=== PATIENT | male | born 1950 | race Two or more races ===

== ENCOUNTER 2018-12-02 19:14 | Inpatient (IN) | payer MEDICARE, OTHER ==
[~2018-12-02] VITALS: Ht 165.1 cm; Wt 67.6 kg
--- NOTE | 2018-12-02 19:45 | NUR ---
IAM FROM HOME. TO ER BED 9. AAOX4. NO RESP DISTRESS NOTED, BREATHING EVEN AND UNLABORED. AMBULATORY. PT REPORT NOT FEELING WELL AND WEAK BECAUSE HE IS GOING THRUOGH ALCHOHOL WITHDRAWAL. LAST DRINK WAS THIS MORNING, 2 BEERS. PT REPORTS THAT HE USUALLY DRINKS THROUGHTOUT THE DAY. PT REPORTS NAUSEA AND GEN BODY PAIN. MD AT BEDSIDE FOR EVAL. ORDERS RECEIVED, NOTED AND CARRIED OUT. IV LINE OBTAINED ON R HAND 20G. BLOOD DRAWN AND GIVEN TO WELLNESS CONSULTANT AT BEDSIDE.
[2018-12-02 19:50] LABS: BASOPHILS % (AUTO) 0.3 % (0.0-2.0); EOSINOPHILS % (AUTO) 0.1 % (0.0-6.0); HEMATOCRIT 36 % (39-51); HEMOGLOBIN 12.5 g/dL (13.5-17.5); LYMPHOCYTES % (AUTO) 19.4 % (20.0-44.0); MEAN CORPUSCULAR HGB CONC 35 g/dl (31.0-36.0); MEAN CORPUSCULAR VOLUME 95 fL (80-96); MONOCYTES # (AUTO) 0.4 /CMM (0.1-1.30); MONOCYTES % (AUTO) 7.2 % (2.0-12.0); NEUTROPHILS # (AUTO) 3.7 /CMM (1.8-8.9); PLATELET COUNT (AUTO) 119 /CMM (150-450); RED BLOOD CELL COUNT(AUTO) 3.74 MIL/uL (4.5-6.0); WHITE BLOOD COUNT (AUTO) 5.1 K/uL (4.3-11.0)
[2018-12-02] MEDS ORDERED: LORAZEPAM INJ 2 MG/ML VIAL ONE (19:52)
[2018-12-02] MEDS ORDERED: LORAZEPAM INJ 2 MG/ML VIAL IV ONE (20:00)
[2018-12-02] MEDS ORDERED: IV NS 0.9% 1,000 ML BAG IV ONE ×2 (20:00→20:30)
[2018-12-02 20:29] LABS: ALANINE AMINOTRANSFERASE 26 U/L (12-78); ALBUMIN 3.1 g/dL (3.4-5.0); ALKALINE PHOSPHATASE 91 U/L (46-116); ASPARTATE AMINOTRANSFERASE 39 U/L (15-37); BILIRUBIN,DIRECT 0.2 mg/dL (0.0-0.2); BILIRUBIN,TOTAL 0.5 mg/dL (0.2-1.0); CALCIUM, SERUM 7.8 mg/dL (8.5-10.1); CARBON DIOXIDE 25 mmol/L (21-32); CHLORIDE 97 mmol/L (98-107); GLUCOSE 112 mg/dL (74-106); SODIUM SERUM 136 mmol/L (136-145); TOTAL PROTEIN, SERUM 7.3 g/dL (6.4-8.2); UREA NITROGEN, BLOOD 6 mg/dL (7-18)
[2018-12-02 20:30] LABS: POTASSIUM 2.4 mmol/L (3.5-5.1)
[2018-12-02] MEDS ORDERED: ONDANSETRON HCL/PF 4 MG/2 ML VIAL ONE (21:20)
--- NOTE | 2018-12-02 21:28 | NUR ---
PT COMPLAINED OF NAUSEA. MD MADE AWARE. RECEIVED VERBAL ORDER TO GIVE ZOFRAN 4MG IV
[2018-12-02] MEDS ORDERED: POTASSIUM CHLORIDE 20 MEQ TAB.PRT.SR PO ONE ×2 (21:30→21:32)
[2018-12-02] MEDS ORDERED: ONDANSETRON HCL/PF - ER 4 MG/2 ML VIAL IV ONE (21:30)
[2018-12-02 21:31] LABS: APPEARANCE,URINE Clear (CLEAR); BILIRUBIN,URINE SMALL (NEGATIVE); BLOOD, URINE Negative Ery/uL (NEGATIVE); COLOR,URINE Yellow (YELLOW); KETONES,URINE Negative (NEGATIVE); LEUKOCYTE ESTERASE ,URINE Moderate (NEGATIVE); NITRITE, URINE Positive (NEGATIVE); PROTEIN,URINE Negative (NEGATIVE); UGLUCOSE Negative (NEGATIVE); UROBILINOGEN,URINE 0.2 EU/dL (0.2)
[2018-12-02 21:38] LABS: BACTERIA,URINE 2+ /HPF (None Seen); RBC,URINE NONE SEEN /HPF (0-2); SQUAMOUS EPITHELIAL CELL,UR Few /HPF (None Seen)
[2018-12-02] MEDS ORDERED: Magnesium 1GM/D5W 100ML PREMIX 400 ML IV ONE (22:40)
[2018-12-02] MEDS: Magnesium 1GM/D5W 100ML PREMIX 100 ML IV SCH ×2 (22:46→23:46)
[2018-12-02] MEDS ORDERED: CEFTRIAXONE 1GM BAG (ER ONLY) 50 ML IV ONE ×2 (22:55→23:00)
[2018-12-02] MEDS ORDERED: ACETAMINOPHEN 325 MG TABLET PO PRN (23:30)
[2018-12-02] MEDS ORDERED: ONDANSETRON HCL/PF 4 MG/2 ML VIAL IVP PRN (23:30)
[2018-12-02] MEDS ORDERED: LORAZEPAM INJ 2 MG/ML VIAL IV PRN (23:30)
--- NOTE | 2018-12-02 23:40 | NUR ---
REPORT GIVEN TO CHELSIE HOGUE FOR NESHA. PT GOING TO 320-1
--- NOTE | 2018-12-03 00:28 | NUR ---
RN NOTES Faxed order for Thiamine to nursing fast food shift supervisor as medication is not available in the unit. Faxed went through. Called nursing fast food shift supervisor in office and cellphone to inform her, but no answer. Will follow up
[2018-12-03 00:30] VITALS: BP 141/92
--- NOTE | 2018-12-03 00:30 | NUR ---
CORE JAVA SOFTWARE ENGINEERABSTRACTOR NOTES Patient came to unit via radha for early sepsis. Patient is alert, oriented x 3. Breathing even and unlabored. Not in any distress. Stable on room air. Third bag of Magnesium 1gm IV currently infusing at 100mL/hr on R) hand g#20. Another IV site on L) wrist g#20 intact and patent. Tele monitor in place- sinus rhythm 81. Patient refused skin assessment, said he has no skin issues. Patient also refused to be changed into a hospital gown. Oriented to call light- placed within reach, bed in lowest locked position. Will continue to monitor accordingly Addendum: 12/03/18 at 0650 by SAMIRA NEWTON RN Patient's time of arrival to unit is 00:20hrs
[2018-12-03] MEDS ORDERED: GABA600T12 PO (00:35)
[2018-12-03] MEDS ORDERED: TRAM50TA2 PO (00:35)
--- NOTE | 2018-12-03 00:37 | NUR ---
PT TRANSPORTED TO UNIT ON GURNEY WITH EMT AND RN AT BEDSIDE W/ ACLS PROTOCOL. NAD NOTED DURING TRANSPORT.
[2018-12-03] MEDS: IV NS 0.9% 1,000 ML IV SCH ×2 (00:44→13:24)
[2018-12-03] MEDS: Magnesium 1GM/D5W 100ML PREMIX 100 ML IV SCH ×2 (00:44→01:32)
[2018-12-03] MEDS: LEVOFLOXACIN 750 MG /D5W 150ML 150 ML IV SCH ×2 (00:45→23:09)
[2018-12-03] MEDS ORDERED: Thiamine 100 MG in IV D5W 50 ML IV SCH (01:00)
--- NOTE | 2018-12-03 01:15 | NUR ---
RN NOTES Called nursing production shift supervisor again in office and cellphone regarding Thiamine 100mg IV, still no answer. Will continue to follow up
--- NOTE | 2018-12-03 01:18 | NUR ---
RN NOTES Patient c/o pain. Patient is taking Gabapentin 600mg PO TID and Tramadol 50mg PO. Rossi LEAF SIZE PICKER informed. As per Rossi, to give Gabapentin. No Tramadol for now.
[2018-12-03] MEDS: GABAPENTIN 300 MG CAPSULE PO SCH ×4 (01:27→17:00)
[2018-12-03] MEDS ORDERED: Thiamine 100 MG/ML VIAL ONE (02:01)
[2018-12-03 04:00] VITALS: BP 149/97
--- NOTE | 2018-12-03 06:38 | NUR ---
MS RN CLOSING NOTES Patient still sleeping in bed, easy to arouse. Breathing even and unlabored. Not in any distress, on room air. Peripheral IV on L wrist g#20 infusing at 75mL/hr. IV on R) hand g#20 intact and patent, S/L. Tele monitor in place- sinus rhythm 77. No acute changes overnight. All needs attended. Safety measures maintained. Will endorse NESHA to oncoming RN
[2018-12-03 07:44] LABS: BASOPHILS % (AUTO) 0.1 % (0.0-2.0); EOSINOPHILS % (AUTO) 0.4 % (0.0-6.0); HEMATOCRIT 33 % (39-51); HEMOGLOBIN 11.4 g/dL (13.5-17.5); LYMPHOCYTES # (AUTO) 0.8 /CMM (0.8-4.8); LYMPHOCYTES % (AUTO) 18.3 % (20.0-44.0); MEAN CORPUSCULAR HGB CONC 35 g/dl (31.0-36.0); MEAN CORPUSCULAR VOLUME 96 fL (80-96); MONOCYTES # (AUTO) 0.3 /CMM (0.1-1.30); MONOCYTES % (AUTO) 7.2 % (2.0-12.0); PLATELET COUNT (AUTO) 72 /CMM (150-450); RED BLOOD CELL COUNT(AUTO) 3.39 MIL/uL (4.5-6.0); WHITE BLOOD COUNT (AUTO) 4.1 K/uL (4.3-11.0)
[2018-12-03 07:59] LABS: CALCIUM, SERUM 7.4 mg/dL (8.5-10.1); CREATININE 0.8 mg/dL (0.6-1.3)
[2018-12-03 08:00] VITALS: BP 135/96
[2018-12-03 08:00] LABS: ALBUMIN 2.9 g/dL (3.4-5.0); BILIRUBIN,TOTAL 0.8 mg/dL (0.2-1.0); MAGNESIUM 2.1 mg/dL (1.8-2.4); PHOSPHORUS 2.5 mg/dL (2.5-4.9); TOTAL PROTEIN, SERUM 6.9 g/dL (6.4-8.2)
[2018-12-03 08:13] LABS: POTASSIUM 2.4 mmol/L (3.5-5.1)
[2018-12-03 08:14] LABS: THYROID STIMULATING HORMONE 2.953 uIU/mL (0.358-3.74)
[2018-12-03] MEDS: PANTOPRAZOLE 40 MG TABLET.DR PO SCH (09:00)
[2018-12-03] MEDS: NICOTINE PATCH (7MG) 7 MG PATCH.TD24 TD SCH (09:00)
[2018-12-03] MEDS ORDERED: PANTOPRAZOLE 40 MG VIAL IV SCH (09:00)
[2018-12-03] MEDS: VIT B CMPLX 3/FA/VIT C/BIOTIN 1 TAB TABLET PO SCH (09:18)
[2018-12-03 09:41] LABS: LYMPHOCYTES % (MANUAL) 25 % (16-48); MONOCYTES % (MANUAL) 8 % (0-11.0); NEUTROPHILS % (MANUAL) 67 (42-76)
[2018-12-03] MEDS: POTASSIUM CHLORIDE 20 MEQ TAB.PRT.SR PO SCH ×2 (11:11→13:19)
[2018-12-03] MEDS: POTASSIUM CL. PREMIX PERIPHER. 50 ML IV SCH ×2 (11:11→11:30)
[2018-12-03] MEDS: TRAMADOL HCL 50 MG TABLET PO PRN ×2 (13:19→20:45)
[2018-12-03 16:00] VITALS: BP 122/94
--- NOTE | 2018-12-03 19:05 | NUR ---
MS RN NOTES RECEIVED PT IN BED AWAKE AND ABLE TO MAKE NEEDS KNOWN. PT A/O X3. RESPIRATIONS EVEN AND UNLABORED WITH NO S/S OF ACUTE DISTRESS OR SOB NOTED. NO COMPLAINTS OF PAIN AT THIS TIME. PT WITH LWRIST #20G PATENT AND INTACT INFUSING NS@75ML/HR, TOLERATING WELL. PT ALSO WITH RHAND #20G PATENT AND INTACT AND SL. PT ON TELE MONITOR @SR 68. SAFETY MEASURES IN PLACE WITH BED IN LOWEST LOCKED POSITION WITH SIDE RAILS UP X2. CALL LIGHT WITHIN REACH. WILL CONTINUE TO MONITOR.
[2018-12-03 20:00] VITALS: BP 134/78
--- NOTE | 2018-12-03 21:45 | NUR ---
Met with patient,he is alert and pleasant. States he lives in an independent shelter facility at [address] [place] [address]. Patient states he is ambulatory and independent with adl's. He uses his wheelchair as a walker for mobility outside the facility. Was on homehealth but he cannot remember the homehealth contact info. States Marquis Mccann [phone] is the facility caregiver and will arrange transportation when discharge. Addendum: 12/03/18 at 2147 by JESSICA STEVE RN Amended: Links added.
[2018-12-04] VITALS: BP 144/80
[2018-12-04] MEDS: IV NS 0.9% 1,000 ML IV SCH ×2 (01:31→15:09)
[2018-12-04 04:00] VITALS: BP 127/94
[2018-12-04 06:49] LABS: BASOPHILS % (AUTO) 0.2 % (0.0-2.0); EOSINOPHILS % (AUTO) 1.2 % (0.0-6.0); HEMATOCRIT 31 % (39-51); HEMOGLOBIN 10.6 g/dL (13.5-17.5); LYMPHOCYTES # (AUTO) 0.7 /CMM (0.8-4.8); LYMPHOCYTES % (AUTO) 18.1 % (20.0-44.0); MEAN CORPUSCULAR HGB CONC 34 g/dl (31.0-36.0); MEAN CORPUSCULAR VOLUME 98 fL (80-96); MONOCYTES # (AUTO) 0.4 /CMM (0.1-1.30); MONOCYTES % (AUTO) 8.6 % (2.0-12.0); NEUTROPHILS % (AUTO) 71.9 % (43.0-81.0); PLATELET COUNT (AUTO) 59 /CMM (150-450); RED BLOOD CELL COUNT(AUTO) 3.16 MIL/uL (4.5-6.0); WHITE BLOOD COUNT (AUTO) 4.1 K/uL (4.3-11.0)
[2018-12-04 07:01] LABS: CREATININE 0.7 mg/dL (0.6-1.3); MAGNESIUM 1.6 mg/dL (1.8-2.4); PHOSPHORUS 3.2 mg/dL (2.5-4.9); POTASSIUM 3.3 mmol/L (3.5-5.1)
--- NOTE | 2018-12-04 07:35 | NUR ---
RN NOTE: RECEIVED PATIENT IN BED AWAKE, ALERT AND VERBALLY RESPONSIVE. RESPIRATION EVEN AND UNLABORED SATURATING 94% IN ROOM AIR. PATIENT DENIED ANY PAIN AT THIS TIME. HOB ELEVATED. ON WELL SERVICE PUMP EQUIPMENT OPERATOR SR HR= 64. BED ALARMED AND LOCKED AT ALL TIMES. BED ON LOWEST POSITION AT ALL TIMES. PATIENT WAS SERVED WITH HIS BREAKFAST TRAY. AFEBRILE. SKIN WARM TO TOUCH. (R) HAND AND (L) WRIST IV SITE WAS NOTED PATENT AND INTACT INFUSING NS@75ML/HR. CALL LIGHT WITHIN REACH. NEEDS ANTICIPATED.
--- NOTE | 2018-12-04 07:44 | NUR ---
PROPERTIES SUPERVISOR NOTES PT IN BED AWAKE AND ABLE TO MAKE NEEDS KNOWN. PT A/O X3. RESPIRATIONS EVEN AND UNLABORED WITH NO S/S OF ACUTE DISTRESS OR SOB NOTED THROUGHOUT SHIFT. PT KEPT CLEAN, DRY, AND COMFORTABLE. NO COMPLAINTS OF PAIN AT THIS TIME. PT WITH LWRIST #20G PATENT AND INTACT INFUSING NS@75ML/HR, TOLERATING WELL. PT ALSO WITH RHAND #20G PATENT AND INTACT AND SL. PT ON TELE MONITOR @SR 62. SAFETY MEASURES IN PLACE WITH BED IN LOWEST LOCKED POSITION WITH SIDE RAILS UP X2. CALL LIGHT WITHIN REACH. WILL ENDORSE TO ONCOMING NURSE FOR NESHA.
[2018-12-04 08:00] VITALS: BP 151/97
[2018-12-04 08:07] VITALS: BP 151/97
[2018-12-04] MEDS: PANTOPRAZOLE 40 MG TABLET.DR PO SCH (08:56)
[2018-12-04] MEDS: VIT B CMPLX 3/FA/VIT C/BIOTIN 1 TAB TABLET PO SCH (08:56)
[2018-12-04] MEDS: GABAPENTIN 300 MG CAPSULE PO SCH ×3 (08:56→16:46)
[2018-12-04] MEDS: NICOTINE PATCH (7MG) 7 MG PATCH.TD24 TD SCH (08:57)
[2018-12-04] MEDS: TRAMADOL HCL 50 MG TABLET PO PRN (08:57)
[2018-12-04 10:08] LABS: BAND % (MANUAL) 1 % (0.0-5.0); LYMPHOCYTES % (MANUAL) 21 % (16-48); MONOCYTES % (MANUAL) 5 % (0-11.0); NEUTROPHILS % (MANUAL) 73 (42-76)
[2018-12-04] MEDS ORDERED: POTASSIUM CHLORIDE 20 MEQ TAB.PRT.SR PO SCH (11:00)
[2018-12-04] MEDS ORDERED: MAGNESIUM OXIDE 400 MG TABLET PO ONE (11:30)
[2018-12-04 16:00] VITALS: BP 143/86
--- NOTE | 2018-12-04 17:00 | NUR ---
RN NOTE: EXPECTORATED SMALL AMOUNT OF SPUTUM WAS COLLECTED FROM THE PATIENT AND WAS PLACED ON THE SPECIMEN CUP. LABELED, DATED AND INITIALED. CALLED LAB FOR SPECIMEN PICK-UP.
--- NOTE | 2018-12-04 19:17 | NUR ---
RN NOTE: CALLED AND INFORMED RALEIGH WISE NP REGARDING THE PATIENT'S VERBALIZATION OF HAVING A LOOSE STOOL X2 ALREADY. PATIENT WAS CURRENTLY RECEIVING LEVAQUIN ANTIBIOTIC IV AND WAS SWITCHED TO PO STARTING TONIGHT. Lion WISE NP ORDERED IMODIUM. ORDER NOTED AND CARRIED OUT. PATIENT MADE AWARE. ENDORSED TO PM SHIFT NURSE FOR CONTINUITY OF CARE.
[2018-12-04] MEDS ORDERED: LOPERAMIDE HCL (2 MG CAP) 2 MG CAPSULE PO PRN (19:30)
--- NOTE | 2018-12-04 19:50 | NUR ---
RN NOTES RECEIVED PATIENT AWAKE ALERT ORIENTED X4, SAFETY MEASURES IN PLACE, CALL LIGHT WITH IN EASY REACH, DENIES ANY PAIN AT THIS TIME. ALL NEEDS ATTENDED, WILL CONTINUE TO MONITOR ACCORDINGLY.
[2018-12-04 20:00] VITALS: BP 134/88
[2018-12-04] MEDS: THIAMINE HCL 100 MG TABLET PO SCH (20:24)
--- NOTE | 2018-12-04 20:24 | NUR ---
RN NOTES ALL NEEDS ATTENDED, DUE MEDS GIVEN, SAFETY MEASURES IN PLACE, CALL LIGHT WITHIN EASY REACH, KEPT COMFORTABLE.
[2018-12-04] MEDS ORDERED: LEVOFLOXACIN (750 MG) 750 MG TABLET PO SCH (21:00)
--- NOTE | 2018-12-04 21:30 | NUR ---
RN NOTES ENDORSED PATIENT TO NURSE JANNET FOR CONTINUITY OF CARE.
[2018-12-05] MEDS: IV NS 0.9% 1,000 ML IV SCH (05:03)
[2018-12-05 06:29] LABS: BASOPHILS % (AUTO) 0.3 % (0.0-2.0); EOSINOPHILS % (AUTO) 2.5 % (0.0-6.0); HEMATOCRIT 31 % (39-51); HEMOGLOBIN 10.5 g/dL (13.5-17.5); LYMPHOCYTES # (AUTO) 0.6 /CMM (0.8-4.8); LYMPHOCYTES % (AUTO) 20.3 % (20.0-44.0); MEAN CORPUSCULAR HGB CONC 34 g/dl (31.0-36.0); MEAN CORPUSCULAR VOLUME 98 fL (80-96); MONOCYTES # (AUTO) 0.4 /CMM (0.1-1.30); MONOCYTES % (AUTO) 11.5 % (2.0-12.0); NEUTROPHILS % (AUTO) 65.4 % (43.0-81.0); PLATELET COUNT (AUTO) 57 /CMM (150-450); RED BLOOD CELL COUNT(AUTO) 3.12 MIL/uL (4.5-6.0); WHITE BLOOD COUNT (AUTO) 3.1 K/uL (4.3-11.0)
[2018-12-05 06:37] LABS: CALCIUM, SERUM 8.2 mg/dL (8.5-10.1); CREATININE 0.7 mg/dL (0.6-1.3); MAGNESIUM 1.4 mg/dL (1.8-2.4); PHOSPHORUS 3.6 mg/dL (2.5-4.9); POTASSIUM 3.6 mmol/L (3.5-5.1)
--- NOTE | 2018-12-05 07:16 | NUR ---
MS RN NOTES PT IN BED AWAKE AND ABLE TO MAKE NEEDS KNOWN. PT A/O X3. RESPIRATIONS EVEN AND UNLABORED WITH NO S/S OF ACUTE DISTRESS OR SOB NOTED THROUGHOUT SHIFT. PT KEPT CLEAN, DRY, AND COMFORTABLE. NO COMPLAINTS OF PAIN AT THIS TIME. PT WITH LWRIST #20G PATENT AND INTACT INFUSING NS@75ML/HR, TOLERATING WELL. SAFETY MEASURES IN PLACE WITH BED IN LOWEST LOCKED POSITION WITH SIDE RAILS UP X2. CALL LIGHT WITHIN REACH. WILL ENDORSE TO ONCOMING NURSE FOR NESHA.
--- NOTE | 2018-12-05 07:46 | NUR ---
M/S RN NOTES PATIENT AWAKE IN BED, ALERT AND ORIENTED X3, IN NO RESPIRATORY DISTRESS NOTED, NO C/O PAIN AT THIS TIME. IV NS INFUSING AT 75ML/HR ON THE LT WRIST, INTACT AND PATENT, NO REDNESS, NO INFILTRATION. PATIENT'S NEEDS ATTENDED. BED ON LOWEST LOCKED POSITION, CALL LIGHT WITHIN REACH, WILL CONTINUE TO MONITOR.
[2018-12-05 08:00] VITALS: BP 148/74
[2018-12-05] MEDS: GABAPENTIN 300 MG CAPSULE PO SCH ×2 (08:25→12:40)
[2018-12-05] MEDS: NICOTINE PATCH (7MG) 7 MG PATCH.TD24 TD SCH (08:25)
[2018-12-05] MEDS: VIT B CMPLX 3/FA/VIT C/BIOTIN 1 TAB TABLET PO SCH (08:25)
[2018-12-05] MEDS: THIAMINE HCL 100 MG TABLET PO SCH (08:25)
[2018-12-05] MEDS: PANTOPRAZOLE 40 MG TABLET.DR PO SCH (08:25)
[2018-12-05 08:50] LABS: EOSINOPHILS % (MANUAL) 3 % (0-4); LYMPHOCYTES % (MANUAL) 21 % (16-48); MONOCYTES % (MANUAL) 8 % (0-11.0); NEUTROPHILS % (MANUAL) 68 (42-76)
[2018-12-05] MEDS ORDERED: Thiamine HCL PO (10:33)
[2018-12-05] MEDS ORDERED: LEVO750T21 PO (10:33)
[2018-12-05] MEDS ORDERED: LEVO500T75 PO (10:35)
[2018-12-05] MEDS: Magnesium 1GM/D5W 100ML PREMIX 100 ML IV SCH ×4 (10:52→13:30)
--- NOTE | 2018-12-05 11:25 | NUR ---
M/S RN NOTES PATIENT AWAKE, LYING IN BED. NO RESPIRATORY DISTRESS, NO C/O PAIN AT THIS TIME. IV MAGNESIUM INFUSING AT 100ML/HR ON THE LT WRIST, INTACT AND PATENT, NO REDNESS, NO INFILTRATION. PATIENT'S NEEDS ATTENDED. BED ON LOWEST LOCKED POSITION, CALL LIGHT WITHIN REACH. WILL ENDORSE TO CHELSIE TOM FOR CONTINUITY OF CARE.
--- NOTE | 2018-12-05 11:27 | NUR ---
TRANSFER OF CARE NOTE REPORT RECEIVED FROM LISA HOLGUIN AT THIS TIME, INFORMED THAT PT WILL BE D/C HOME LATER THIS DAY AFTER MAGNESIUM INFUSED. PT WAS RECEIVED IN STABLE CONDITION WILL MONITOR ACCORDINGLY
--- NOTE | 2018-12-05 11:30 | NUR ---
RN NOTE PT HOME MEDS WERE RETURNED AT THIS TIME
--- NOTE | 2018-12-05 14:38 | NUR ---
DISCHARGE NOTE PT WAS D/C AT THIS TIME IN MEDICALLY STABLE CONDITION BACK HOME WITH CAREGIVER IN THEIR PRIVATE CAR. ID AND IV BAND WERE REMOVED. ALL EXITCARE, D/C PAPERWORK, AND BELONGING LIST WERE SIGNED, DISCUSSED, AND HANDED TO THE PT. ALL BELONGINGS WERE TAKEN AND PRESCRIPTION WAS HANDED TO HIM WELL. PT REFUSED FOR PHOTOS OF SKIN TO BE TAKEN STATING HIS SKIN IS INTACT. ALL NEEDS WERE ATTENDED TO DURING HIS STAY. PT WAS TAKEN DOWN BY ME VIA WHEELCHAIR WHERE HE LEFT IN STABLE CONDITION.
== END 2018-12-05 14:30 | disposition home or self-care (01) | DRG 871 ==
LOC: ER 19:14 → TELE 23:06 → MED 12-04 08:52
PROVIDERS: ADMIT Registered Nurse; ATTEND Registered Nurse
DX: A41.9 Sepsis, unspecified organism (principal); D61.810 Antineoplastic chemotherapy induced pancytopenia; N39.0 Urinary tract infection, site not specified; E87.2 Acidosis; E86.0 Dehydration; B96.89 Other specified bacterial agents as the cause of diseases classified elsewhere; E87.6 Hypokalemia; Z88.0 Allergy status to penicillin; F17.210 Nicotine dependence, cigarettes, uncomplicated; F10.10 Alcohol abuse, uncomplicated; Y90.9 Presence of alcohol in blood, level not specified; E83.42 Hypomagnesemia; D64.9 Anemia, unspecified; K44.9 Diaphragmatic hernia without obstruction or gangrene; K21.9 Gastro-esophageal reflux disease without esophagitis; T45.1X5A Adverse effect of antineoplastic and immunosuppressive drugs, initial encounter; Y92.009 Unspecified place in unspecified non-institutional (private) residence as the place of occurrence of the external cause
CPT/HCPCS: 36415; 71045-TC; 80048-TC; 80053-TC; 80061-TC; 80076-TC; 81000-TC; 83605-TC; 83735-TC; 84100-TC; 84443-TC; 85025-TC; 87040-TC; 87070-TC; 87081-TC; 87086-TC; 87186-TC; A6403; C9113; G0378; J0696; J1956; J2060; J2405; J3411; J3475; J3480; J7030; J7060